=== PATIENT | female | born 1945 | race Caucasian/White ===

== ENCOUNTER → 2017-09-10 | Outpatient (CLI) | payer MEDICARE, OTHER | LOC: M.RAD 08:43 | DX: Z12.31 Encounter for screening mammogram for malignant neoplasm of breast (principal); M85.80 Other specified disorders of bone density and structure, unspecified site ==

== ENCOUNTER → 2018-07-25 | Outpatient (CLI) | payer MEDICARE, OTHER | LOC: M.RAD 07-18 09:00 | DX: M81.0 Age-related osteoporosis without current pathological fracture (principal); M85.89 Other specified disorders of bone density and structure, multiple sites; R06.02 Shortness of breath; Z72.0 Tobacco use; Z78.0 Asymptomatic menopausal state ==

== ENCOUNTER 2019-02-18 11:56 | Inpatient (IN) | payer MEDICARE, OTHER ==
[~2019-02-18] VITALS: Ht 162.6 cm; Wt 58.1 kg
--- NOTE | ~2019-02-18 | OP ---
[address] [address] OPERATIVE REPORT Name: BRANDI BARTLETT Room: [address] IN [facility].#: [id number] Admission: 02/18/19 Attend Phys: Montserrat Gonzales Discharge: 02/25/19 Date of : 47 Report #: [id number] THIS REPORT FOR: //name// CC: David Argueta DICTATED BY: Antonio Levy DO DATE OF SERVICE: 02/21/[address] Lizeth Villarreal PREOPERATIVE DIAGNOSIS: Right shoulder septic arthritis. POSTOPERATIVE DIAGNOSIS: Right shoulder septic arthritis. OPERATIVE SURGEON: Lizeth Villarreal DO SOLE ROUNDING MACHINE OPERATOR: Antonio Levy DO SURGERY PERFORMED: Right shoulder arthroscopic irrigation and debridement. ANESTHESIA TYPE: General. ESTIMATED BLOOD LOSS: 10 mL. SPECIMENS REMOVED: Tissue and fluid cultures sent to lab. COMPLICATIONS: None. ANTIBIOTICS: She is on scheduled vancomycin. TOURNIQUET: None. DISPOSITION: Stable to PACU. OPERATIVE INDICATIONS: The patient is a pleasant 73-year-old female who presented to the [facility] on Sunday02/18/2019 where she was found to have a swollen right shoulder. She underwent a shoulder aspiration in the clinic, which yielded 66,000 white blood cells with 99% PMNs. She subsequently underwent a right shoulder arthroscopic irrigation and debridement later on. The patient continued to have right shoulder pain and a repeat arthroscopic irrigation and debridement was deemed warranted today. The risks, benefits, complications and alternatives to surgery were thoroughly discussed with the patient and she accepted the risks [place] [address] OPERATIVE REPORT Name: BRANDI BARTLETT Room: [address] IN .R.#: [id number] Admission: 02/18/19 Attend Phys: Montserrat Gonzales Discharge: 02/25/19 Date of : 47 Report #: [id number] OPERATIVE FINDINGS: Upon entering the blunt trocar into the posterior portal into the joint, 10 mL of purulent serosanguineous fluid with chunks of purulent material were expressed from the right shoulder joint. Entering with the arthroscope there was no purulent material within the joint; however, there was a large amount of synovitis throughout the shoulder. There was near full thickness loss of cartilage on both the humeral head and superior portions of the glenoid. DESCRIPTION OF PROCEDURE: The patient was seen in the preoperative suite, the right shoulder was then marked. Everyone in the preoperative suite agreed with correct patient, site and side and procedure. Consent was obtained. The patient was then taken to the preoperative suite and transferred over to a well-padded surgical table in the supine position. She was given the benefits of general anesthesia and then placed in the beach chair position in the standard fashion. Sutures from her prior arthroscopic I and D were removed with Adson's and tenotomies. The patient was prepped in the standard fashion with ChloraPrep. The right shoulder was draped in a typical sterile fashion. A timeout was performed and everyone in the operative suite was in agreeance on correct patient, side, site, and procedure. An 11 blade was utilized to recreate the posterior portal from her prior surgery. The blunt trocar was inserted into the joint. Upon entering the joint, 10 mL of purulent serosanguineous fluid with chunked purulent material were expressed and collected into a specimen cup that was sit down to the lab for further analysis. The arthroscope was then inserted into the joint where a large amount of synovitis was encountered throughout the shoulder as well as loss of cartilage on both the humeral head and superior aspect of the glenoid. The anterior portal was then created with an 11 blade. The blunt trocar was used to enter the shoulder joint from the anterior portal. The 4-0 shaver was then inserted into the shoulder through the anterior portal. Synovium was debrided and then 9 liters of saline was used to irrigate the shoulder. Once the 9 liters of saline ran out, the shaver and the arthroscope were removed. Excess water was expressed from the shoulder joint through the anterior and posterior incisions. The incisions were then closed with 3-0 nylon in an interrupted fashion, then dressed with Xeroform, 4 x 4s, ABD and Medipore tape. The patient was placed back into her sling. She was awoken from general anesthesia and transported to PACU in stable condition. Dr. Villarreal was present for all pertinent and critical aspects of this case, postoperative care. The patient will resume her scheduled vancomycin, for which her next dose is at 1500 today. We will await the cultures and Gram stain results from this arthroscopic I and D as well as continue to follow the samples taken previously. She will continue using SCDs for DVT prophylaxis. We will monitor the patient's clinical symptoms as well as the Gram stain and culture [address] [address] OPERATIVE REPORT Name: BRANDI BARTLETT Room: [address] IN ..#: [id number] Admission: 02/18/19 Attend Phys: Montserrat Gonzales Discharge: 02/25/19 Date of : 47 Report #: [id number] results. ____ the patient will warrant a third arthroscopic irrigation and debridement. By: 0925 1035Achastity Villarreal DO /ab
[2019-02-18 12:26] LABS: HEMATOCRIT 36.3 % (37.0-47.0); HEMOGLOBIN 12.5 gm/dL (12.0-15.0); MCH 31.4 pg (26.0-34.0); MCHC 34.5 g/dL (28.0-37.0); MCV 90.8 fL (80.0-100.0); MPV 7.9 fl. (7.2-11.1); RBC 3.99 mil/uL (4.20-5.00); RDW-CV 12.5 % (10.5-14.5); WBC 7.5 thou/uL (4.0-11.0)
[2019-02-18 12:47] LABS: BF RBC 5840 /mm3; TOTAL CELL COUNT >66000 /mm3
[2019-02-18 12:49] LABS: TOTAL VOLUME 25 ml
[2019-02-18 12:50] LABS: CLARITY TURBID
[2019-02-18 13:46] LABS: BF LYMPHOCYTES 1 %; BF POLYS 99 %; BF TISSUE 3 /100 WBC
[2019-02-18 13:47] LABS: BF MONOCYTES 0 %; SOURCE SYNOVIAL
[2019-02-18 14:20] VITALS: BP 139/69
[2019-02-18 14:58] LABS: URINE BILIRUBIN NEGATIVE (Negative); URINE BLOOD TRACE (Negative); URINE CLARITY CLEAR; URINE COLOR YELLOW; URINE GLUCOSE-RANDOM NEGATIVE (Negative); URINE KETONES NEGATIVE (Negative); URINE LEUKOCYTES-REFLEX NEGATIVE (Negative); URINE NITRITE-REFLEX NEGATIVE (Negative); URINE PROTEIN NEGATIVE (Negative); URINE UROBILINOGEN 0.2 E.U./dl (0.2-1.0)
--- NOTE | 2019-02-18 15:21 | NUR ---
LEFT BASILIC VESSEL ACCESSED FOR DUAL LUMEN PICC. LINE PRE=TRIMMED TO 42 CM AND ADVANCED TO THE ZERO DAGOBERTO WITH NO RESISTANCE MET. UPPER ARM CIRCUMFERENCE ABOVE INSERTION SITE = 10 1/2". SHERLOCK MAGNET AND 3CG CONFIRMATION OF TIP TERMINATION AT PIERO CAVOATRIAL JUNCTION APPRECIATED. GUIDE WIRE REMOVED LINE FLUSHED AND INSERTION SITE DRESSED. REPORT GIVEN TO NERISSA DELGADO.
--- NOTE | 2019-02-18 15:31 | EKG ---
[place] [address] ELECTROCARDIOGRAM REPORT Name: BRANDI BARTLETT Room: [address] ADM IN M.R.#: [id number] Admission: 02/18/19 Attend Phys: Montserrat Gonzales Discharge: Date of : 47 Report #: [id number] THIS REPORT FOR: //name// [facility] Test Date: 2019-02-18 Test Time: 15:10:04 Pat Name: BRANDI BARTLETT Department: Room: [address] Gender: F Web Applications Developer: RT : 1945 Requested By: South Argueta Order Number: [id number] Mayra MD: Gavino Ramriez Measurements Intervals [place] Rate: 77 P: 71 AK: 139 QRS: 58 QRSD: 78 T: 52 QT: 371 QTc: 420 Interpretive Statements Sinus rhythm No previous ECG available for comparison Electronically Signed On 02-18-2019 15:31:15 SENIOR DIRECTOR FINANCE by Gavino Ramirez [email or web address] <ELECTRONICALLY SIGNED> By: Gavino Ramirez MD, [facility] 02/18/19 1531 1510 1510 Gavion Ramirez MD, FACC /EPI
[2019-02-18 15:35] LABS: ABSOLUTE LYMPHOCYTES 1.6 thou/uL (0.8-5.3); ABSOLUTE MONOCYTES 0.6 thou/uL (0.0-1.2); ABSOLUTE NEUTROPHILS 2.8 thou/uL (1.6-8.1); BASOPHILS 0.5 %; EOSINOPHILS 0.9 %; HEMATOCRIT 24.7 % (37.0-47.0); LYMPHOCYTES 31.7 %; MCH 31.4 pg (26.0-34.0); MCHC 34.7 g/dL (28.0-37.0); MCV 90.6 fL (80.0-100.0); MONOCYTES 12.4 %; MPV 7.8 fl. (7.2-11.1); NUCLEATED RBCS 0 /100WBC; POLYS 54.5 %; RBC 2.72 mil/uL (4.20-5.00); RDW-CV 12.4 % (10.5-14.5); WBC 5.1 thou/uL (4.0-11.0)
[2019-02-18 15:37] LABS: HEMOGLOBIN 8.5 gm/dL (12.0-15.0)
[2019-02-18 15:38] LABS: PLATELET COUNT* 184 thou/uL (150-400)
[2019-02-18 15:48] LABS: APTT 35.3 Seconds (25.0-31.3); CREATININE 0.4 mg/dL (0.6-1.3); INR 1.2; PROTIME 11.9 Seconds (9.20-11.50)
[2019-02-18 15:53] LABS: POTASSIUM 2.4 mmol/L (3.5-5.1)
[2019-02-18 16:24] LABS: ABSOLUTE EOSINOPHILS 0.1 thou/uL (0.0-0.7); ABSOLUTE LYMPHOCYTES 1.8 thou/uL (0.8-5.3); ABSOLUTE MONOCYTES 0.8 thou/uL (0.0-1.2); BASOPHILS 0.6 %; EOSINOPHILS 1.4 %; HEMATOCRIT 31.9 % (37.0-47.0); LYMPHOCYTES 26.4 %; MCH 31.5 pg (26.0-34.0); MCHC 34.9 g/dL (28.0-37.0); MCV 90.3 fL (80.0-100.0); MONOCYTES 12.1 %; MPV 7.6 fl. (7.2-11.1); NUCLEATED RBCS 0 /100WBC; PLATELET COUNT* 243 thou/uL (150-400); POLYS 59.5 %; RBC 3.54 mil/uL (4.20-5.00); RDW-CV 12.6 % (10.5-14.5); WBC 6.8 thou/uL (4.0-11.0)
[2019-02-18 16:27] LABS: HEMOGLOBIN 11.1 gm/dL (12.0-15.0)
[2019-02-18 16:30] LABS: CREATININE 0.6 mg/dL (0.6-1.3)
[2019-02-18 16:34] LABS: CALCIUM 7.6 mg/dL (8.5-10.1); POTASSIUM 3.6 mmol/L (3.5-5.1)
--- NOTE | 2019-02-18 18:05 | NUR ---
PT ARRIVED TO FLOOR ABOUT 1500. DIRECT ADMIT. PICC LINE PLACED. EKG COMPLETE. SEPSIS PROTOCAL STARTED. PACU CAME AND GOT PT ABOUT 1600 FOR SURGERY. WILL UPDATE WHEN PT RETURNED.
[2019-02-18 19:30] VITALS: BP 136/58
[2019-02-19] VITALS: BP 103/56
[2019-02-19 04:00] VITALS: BP 139/57
[2019-02-19 05:37] LABS: CREATININE 0.6 mg/dL (0.6-1.3); POTASSIUM 3.6 mmol/L (3.5-5.1)
[2019-02-19 05:38] LABS: ABSOLUTE BASOPHILS 0.1 thou/uL (0.0-0.2); ABSOLUTE EOSINOPHILS 0.1 thou/uL (0.0-0.7); ABSOLUTE MONOCYTES 0.7 thou/uL (0.0-1.2); ABSOLUTE NEUTROPHILS 3.1 thou/uL (1.6-8.1); BASOPHILS 1.5 %; EOSINOPHILS 1.6 %; HEMOGLOBIN 9.6 gm/dL (12.0-15.0); LYMPHOCYTES 33.5 %; MCH 31.2 pg (26.0-34.0); MCHC 34.1 g/dL (28.0-37.0); MCV 91.3 fL (80.0-100.0); MONOCYTES 11.1 %; MPV 8.2 fl. (7.2-11.1); NUCLEATED RBCS 0 /100WBC; PLATELET COUNT* 201 thou/uL (150-400); POLYS 52.3 %; RBC 3.07 mil/uL (4.20-5.00); RDW-CV 12.6 % (10.5-14.5); WBC 5.9 thou/uL (4.0-11.0)
[2019-02-19 07:40] VITALS: BP 108/56
--- NOTE | 2019-02-19 14:09 | NUR ---
VISITED WITH PT. CAME IN HALF WAY THROUGH CONVERSATION. PT.SAID SHE LIVES WITH HER . SHE IS NORMALLY INDEPENDENT. NO USE OF DME,HOME HEALTH OR SNF. DISCUSSED IV ANTIBIOTICS AT DISCHARGE IF CULTURES INDICATE NEED. SHE HAD A PICC LINE,PLACED YESTERDAY. SHE SAID IF ONCE/DAY SHE WOULD PROBABLY RATHER COME IN FOR INFUSION. OTHERWISE SHE FEELS SHE COULD BE TAUGHT TO INFUSE THEM. FAXED FACE SHEET,H&P,OP REPORT AND MED LIST TO [facility] [phone] TO CHECK BENEFITS. SHE WOULD LIKE TO USE [facility] FOR HOME HEALTH. FAXED REFERRAL TO [phone]
--- NOTE | 2019-02-19 15:30 | NUR ---
PER WALT Bazan,ADMITTING, PT.SHOULD BE COVERED AT 100% IF SHE CAME IN FOR IVAB INFUSION DAILY. PT. WOULD ONLY BE ABLE TO COME IN IF ANTIBIOTIC ORDERED WAS ONE TIME DAILY. SHE WOULD HAVE TO COME IN TO THE ER ON THE WEEKENDS FOR INFUSION. PER EMELIA/MISA MONROE. BENEFITS AT THIS TIME WHILE PT.ON 2 ANTIBIOTICS-CEFEPIME WOULD BE $211 AND VANC WOULD BE $304. WITH SUPPLIES TOTAL WOULD BE $656/WEEK. THIS WOULD BE LESS AFTER FINAL IVAB ORDERED. [facility]- -[phone]/[phone]. SHE WOULD USE [facility] FOR HH. [phone] OUTPT.[phone] PT.CAN COME IN FOR DAILY INF.ONLY
--- NOTE | 2019-02-19 15:31 | 2DMMODE ---
[place] [address] 2 D/M-MODE ECHOCARDIOGRAM Name: BRANDI BARTLETT Room: [address] IN [facility]#: [id number] Admission: 02/18/19 Attend Phys: South Argueta Discharge: Date of : 47 Date of Service: 02/19/19 1531 Report #: [id number] THIS REPORT FOR: //name// APPROVED REPORT Study performed: 02/19/2019 14:51:32 EXAM: Comprehensive 2D, Doppler, and color-flow Echocardiogram Patient Location: In-Patient Room #: [facility] Status: routine BSA: 1.62 HR: 64 bpm BP: 108/56 mmHg Rhythm: NSR Other Information Study Quality: Good Indications Sepsis 2D Dimensions IVSd: 9.48 (7-11mm) LVOT Diam: 18.92 (18-24mm) LVDd: 42.94 mm PWd: 9.52 (7-11mm) Ascending Ao: 32.43 (22-36mm) LVDs: 26.60 (25-40mm) Aortic Root: 27.75 mm Volumes Left Atrial Volume (Systole) LA ESV Index: 33.80 mL/m2 Aortic Valve AoV Peak Dany.: 1.39 m/s AO Peak Gr.: 7.70 mmHg LVOT Max P.59 mmHg AO Mean Gr.: 3.77 mmHg LVOT Mean P.68 mmHg LVOT Max V: 1.28 m/s AO V2 VTI: 25.02 cm LVOT Mean V: 0.73 m/s SHANNON (VTI): 3.08 cm2 LVOT V1 VTI: 27.38 cm Mitral Valve E/A Ratio: 1.21 MV Decel. Time: 203.05 ms MV E Max Dany.: 0.77 m/[place] [address] 2 D/M-MODE ECHOCARDIOGRAM Name: BRANDI BARTLETT Room: [address] IN .R.#: [id number] Admission: 02/18/19 Attend Phys: South Argueta Discharge: Date of : 47 Date of Service: 02/19/19 1531 Report #: [id number] MV PHT: 58.88 ms MVA (PHT): 3.74 cm2 TDI E/Lateral E': 6.42 E/Medial E': 7.00 Medial E' Dany.: 0.11 m/s Lateral E' Dany.: 0.12 m/s Pulmonary Valve PV Peak Dany.: 0.80 m/s PV Peak Gr.: 2.56 mmHg Tricuspid Valve RAP Estimate: 5.00 mmHg TR Peak Gr.: 19.00 mmHg RVSP: 24.00 mmHg PA Pressure: 24.00 mmHg Left Ventricle The left ventricle is normal size. There is normal LV segmental wall motion. There is normal left ventricular wall thickness. Left ventricular systolic function is normal. The left ventricular ejection fraction is within the normal range. LVEF is 55-60%. The left ventricular diastolic function is normal. Right Ventricle The right ventricle is normal size. The right ventricular systolic function is normal. Atria Left atrium is mildly dilated. Right atrium is dilated. Aortic Valve The aortic valve is normal in structure. No aortic regurgitation is present. There is no aortic valvular stenosis. Mitral Valve The mitral valve is normal in structure. Trace mitral regurgitation. No evidence of mitral valve stenosis. Tricuspid Valve The tricuspid valve is normal in structure. Mild tricuspid regurgitation. estimated pa pressure 28 mm Hg Pulmonic Valve The pulmonary valve is normal in structure. [place] [address] 2 D/M-MODE ECHOCARDIOGRAM Name: TRIBRANDI POLO Room: [address] IN [facility]#: [id number] Admission: 02/18/19 Attend Phys: South Argueta Discharge: Date of : 47 Date of Service: 02/19/19 1531 Report #: [id number] Great Vessels The aortic root is normal in size. IVC is normal in size and collapses >50% with inspiration. Pericardium There is no pericardial effusion. <Conclusion> LVEF is 55-60%. Left atrium is mildly dilated. <ELECTRONICALLY SIGNED> By: Gavino Ramirez MD, FACC 02/19/19 [phone] Gavino Ramirez MD, FACC /INF
[2019-02-19] MEDS ORDERED: REQUIP 1 MG TABL1 M1 PO (15:44)
[2019-02-19] MEDS ORDERED: TRAZODONE HCL100 MG PO (15:49)
[2019-02-19 16:06] LABS: BODY FLUID PROTEIN 5.1 g/dL (())
[2019-02-19 16:21] VITALS: BP 117/47
--- NOTE | 2019-02-19 18:00 | NUR ---
PATIENT RESTING IN BED. PATIENT IS UP AD MERARI IN ROOM. PATIENT HAS SLING TO RIGHT ARM. ATIENT HAS HAD COMPLAINTS OF PAIN, TREATED ADEQUATELY WITH HYDROCODONE. PATIENT HAS GOOD APPETITE. PATIENT DENIES ANY NEEDS AT THIS TIME. CALL LIGHT WITHIN REACH.
[2019-02-19 20:30] VITALS: BP 147/67
[2019-02-19 21:46] LABS: SOURCE SYNOVIAL
[2019-02-20 02:06] LABS: GLYCOHEMOGLOBIN (HGB A1C) 5.2 % (4.8-5.6)
[2019-02-20 05:35] LABS: ABSOLUTE BASOPHILS 0.1 thou/uL (0.0-0.2); ABSOLUTE EOSINOPHILS 0.2 thou/uL (0.0-0.7); ABSOLUTE LYMPHOCYTES 1.9 thou/uL (0.8-5.3); ABSOLUTE MONOCYTES 0.6 thou/uL (0.0-1.2); EOSINOPHILS 3.1 %; HEMATOCRIT 29.7 % (37.0-47.0); HEMOGLOBIN 10.2 gm/dL (12.0-15.0); LYMPHOCYTES 33.1 %; MCH 31.1 pg (26.0-34.0); MCHC 34.3 g/dL (28.0-37.0); MCV 90.7 fL (80.0-100.0); MONOCYTES 10.9 %; MPV 8.8 fl. (7.2-11.1); NUCLEATED RBCS 0 /100WBC; PLATELET COUNT* 213 thou/uL (150-400); POLYS 51.9 %; RBC 3.27 mil/uL (4.20-5.00); RDW-CV 12.5 % (10.5-14.5); WBC 5.9 thou/uL (4.0-11.0)
[2019-02-20 05:42] LABS: CALCIUM 7.5 mg/dL (8.5-10.1); CREATININE 0.7 mg/dL (0.6-1.3); POTASSIUM 3.8 mmol/L (3.5-5.1)
--- NOTE | 2019-02-20 06:22 | NUR ---
PATIENT SLEPT MOST OF THE NIGHT. IV VANC WAS GIVEN ORDERED. DRESSING TO R SHOULDER REMAINS INTACT WITH SLING IN PLACE. PATIENT WAS GIVEN NAUSEA MEDICINE TWICE AND A LAXITIVE BUT STILL NO BOWEL MOVEMENT. WILL CONTINUE TO MONITOR.
--- NOTE | 2019-02-20 06:26 | CON ---
[address] [address] CONSULTATION Name: BRANDI BARTLETT Room: [address] IN M.R.#: [id number] Admission: 02/18/19 Attend Phys: Montserrat Gonzales Discharge: Date of : 47 Report #: [id number] THIS REPORT FOR: //name// CC: David Argueta DATE OF SERVICE: 02/19/2019 INFECTIOUS DISEASE CONSULTATION ATTENDING PHYSICIAN: South Argueta DO REASON FOR EVALUATION: Right shoulder septic arthritis. HISTORY OF PRESENT ILLNESS: Chart reviewed, patient examined. This is a 73-year-old with little medical history who apparently had developed a frozen shoulder. She at one point received corticosteroid injections, although it has been several months up to a year ago. She developed increasing pain associated with the site without antecedent injury. This progressed over 2-3 days, making it difficult to move the shoulder whatsoever, increasing pain, had some low-grade temperature elevations as well. She was evaluated as an outpatient and underwent aspiration, which showed marked numbers of inflammatory cells, greater than 66,000, 99% polys with synovial aspiration. She was subsequently admitted and underwent operative arthroscopic debridement. Cultures pending. She is empirically started on therapy with vancomycin, single dose of cefepime. At this point, she does state she feels better. Denies any significant pulmonary or gastrointestinal related complaints. ALLERGIES: None known. CURRENT MEDICATIONS: Include famotidine, vancomycin, p.r.n. analgesics and antiemetics. PAST MEDICAL HISTORY: Otherwise, unremarkable. Previous cataract surgeries, corneal transplant, bunionectomy. SOCIAL HISTORY: Does smoke cigarettes, roughly quarter pack for the last 50 years. No illicit drug use. No ethanol. FAMILY HISTORY: Noncontributory. REVIEW OF SYSTEMS: Otherwise, unremarkable 10-point review of systems. PHYSICAL EXAMINATION: GENERAL: She is alert, cooperative, appropriate, [place] [address] CONSULTATION Name: BRANDI BARTLETT Room: [address]#: [id number] Admission: 02/18/19 Attend Phys: Montserrat Gonzales Discharge: Date of : 47 Report #: [id number] Noted her right upper extremity is in a sling. She appears somewhat undernourished. VITAL SIGNS: Temperature 98.5, pulse 61, respirations 16, blood pressure 108/56. SKIN: Warm, dry, no rashes. HEENT: Normocephalic. Extraocular muscles intact. NECK: Supple. LUNGS: Diminished breath sounds, generally clear. HEART: Regular. Borderline bradycardic. I do not appreciate any murmur. ABDOMEN: Soft, nontender, nondistended. EXTREMITIES: No cyanosis. GENITOURINARY/RECTAL: Deferred. LABORATORY DATA: Initial CRP 172.1. CBC: White count of 7.5, H and H 12.5 and 36.3, platelets of 270, sed rate of 75. Synovial fluid culture in progress. Gram stain, no organisms seen, many PMNs. Fluid analysis greater than 66,000 white cells, 5840 red cells, 99% polys, 1% lymph. Urinalysis otherwise unremarkable. Chest x-ray, no acute process. Blood cultures sterile thus far. Echo, EF of 55%-60%, otherwise unremarkable. Crystal analysis, no crystals seen. ASSESSMENT: Right shoulder septic arthritis. I presumed this as a bacteremic seeding based on the history, certainly has ongoing issues for her shoulder given the marked numbers. We will await those culture results. Continue empiric therapy, presume Staph or strep etiology at this point, consider anaerobic as well. Follow up postop. Also note that we may need two additional debridements. We will monitor expectantly. Add incentive spirometry. I would be concerned about possible additional complications. <ELECTRONICALLY SIGNED> By: Arturo Patel MD 02/20/19 0626 1543 [id number] Patel MD /nt
[2019-02-20 07:55] VITALS: BP 144/69
[2019-02-20 16:30] VITALS: BP 156/76
--- NOTE | 2019-02-20 19:00 | NUR ---
PATIENT PLEASANT AND COOEPRATIVE THRU SHIFT. SEE MAR FOR PAIN CONTROL. SLING TO RUE IN PLACE. BULK DRSG TO RT SHOULDER IN PLACE, REINFORCED THIS AM. PATIENT STATES STARTING TO HAVE RESULTS FROM LAXATIVE THIS AM. PICC LINE NOTED WNL. UP INDEP IN RM THIS SHIFT. CURRENTLY RESTING W/ PRESENT IN RM. WATCHING TV. CALM. HRLY ROUNDS DONE. CALL LIGHT IN REACH. ~TJRN
[2019-02-20 19:35] VITALS: BP 172/83
[2019-02-21 00:27] VITALS: BP 172/83
--- NOTE | 2019-02-21 04:45 | NUR ---
PATIENT HAS REMAINED ALERT AND ORIENTED X 4 THROUGHOUT THE SHIFT AND RESTING QUIETLY ON HOURLY ROUNDS. MINAMAL DISCOMFORT RIGHT SHOULDER. ADEQUATE PAIN CONTROL WITH SCHEDULED TORADOL. DRESSING RIGHT SHOULDER CLEAN AND DRY WITH SLING PRESENT. UP INDEPENDENTLY IN THE ROOM. ANTIBIOTICS PER ORDER. NPO AT MIDNIGHT FOR EARLY AM IRRIGATION AND DEBRIDEMENT OF RIGHT SHOULDER. VITAL SIGNS WITH HYPERTENSION AND TEMP 100.0 ORALLY F. INCENTIVE SPIROMETRY ENCOURAGED. CONTINUE TO MONITOR.
[2019-02-21 04:52] VITALS: BP 150/81
[2019-02-21 09:30] VITALS: BP 142/74
[2019-02-21 09:41] LABS: MCH 31.2 pg (26.0-34.0); MCHC 34.6 g/dL (28.0-37.0); MCV 90.2 fL (80.0-100.0); MPV 8.2 fl. (7.2-11.1); RBC 3.22 mil/uL (4.20-5.00); RDW-CV 12.7 % (10.5-14.5); WBC 5.6 thou/uL (4.0-11.0)
[2019-02-21 10:00] LABS: CALCIUM 7.3 mg/dL (8.5-10.1); CREATININE 0.7 mg/dL (0.6-1.3); POTASSIUM 3.5 mmol/L (3.5-5.1)
[2019-02-21 19:30] VITALS: BP 121/64
--- NOTE | 2019-02-21 19:43 | NUR ---
ASSUMED CARE OF PATIENT AT APPROX 0930, PATIENT OFF UNIT AT SHIFT CHANGE. ALERT AND ORIENTED X4. ASSESSMENT CPMPLETED AND CHARTED. VSS ON ROOM AIR. MINIMAL COMPLAINTS OF PAIN THIS SHIFT, MANAGED WITH ORAL NORCO. PATIENT UP AD MERARI AND STEADY. RIGHT UPPER EXTREMITY IN SLING. ANTIBIOTICS INFUSED ORDERED. NO OTHER COMPLAINTS. HOURLY ROUNDS COMPLETED. CALL LIGHT WIN REACH. WILL CONTINUE WITH PLAN OF CARE.
[2019-02-22] VITALS: BP 114/61
[2019-02-22 04:00] VITALS: BP 128/61
[2019-02-22 07:44] VITALS: BP 128/68
--- NOTE | 2019-02-22 09:10 | NUR ---
ASSUMED CARE OF PT AROUND 0730 THIS AM. REFER TO ASSESSMENT. PT REPORTS PAIN CONTROLLED THIS AM. DRESSING TO RT SHOULDER C/D/I. NO OTHER CONCERNS THIS AM. REFER TO ASSESSMENT. NO OTHER CONCERNS AT THIS TIME. CLWR. WCTM.
[2019-02-22 12:00] VITALS: BP 142/82
--- NOTE | 2019-02-22 15:57 | NUR ---
PT PROGRESSING TOWARDS GOALS THIS SHIFT. ORDER OBTAINED FOR HYDROCORTISONE CREAM FOR RASH TO BACK. PLAN TO ATTEMPT CATH NEELIMA TO DOUBLE LUMEN PICC SINCE UNABLE TO DRAW BLOOD FROM EITHER PORTS. DISCUSSED NEW ORDER FOR LISINOPRIL WITH PT AND PT AGREE'S TO START TAKING. NO OTHER CONCERNS AT THIS TIME. CLWR. WCTM.
[2019-02-22 16:00] VITALS: BP 138/74
[2019-02-22 21:00] VITALS: BP 136/69
--- NOTE | 2019-02-23 06:48 | NUR ---
SLOW PROGRESSION TOWARDS GOALS, RESTING QUIELTY WITH EYES CLOSED OFF AND ON DURING NOC, LOW GRADE TEMP 100.4 ORAL, X1 EMESIS DURING NOC, ZOFRAN 4MG IVP GIVEN WITH EFFECTIVE RESULTS NO FURTHER N/V REST OF NOC, DRESSING RT SHOULDER REMAINS C/D/I, PURITIS TO GENERALIZED RASH, HYDROCORTISONE APPLIED X2, PT REPORTS HYDROCORDISONE HELPFUL FOR ITCHING, USING CALL LIGHT FOR NEEDS, CALL LIGHT REMAINS IN REACH, NO FURTHER CHANGE IN ASSESSMENT.
[2019-02-23 07:30] VITALS: BP 151/71
[2019-02-23 14:04] LABS: ABSOLUTE BASOPHILS 0.1 thou/uL (0.0-0.2); ABSOLUTE EOSINOPHILS 0.1 thou/uL (0.0-0.7); ABSOLUTE LYMPHOCYTES 1.4 thou/uL (0.8-5.3); ABSOLUTE MONOCYTES 0.5 thou/uL (0.0-1.2); ABSOLUTE NEUTROPHILS 4.8 thou/uL (1.6-8.1); EOSINOPHILS 2.1 %; LYMPHOCYTES 20.5 %; MCH 30.9 pg (26.0-34.0); MCHC 34.6 g/dL (28.0-37.0); MCV 89.4 fL (80.0-100.0); MONOCYTES 7.4 %; MPV 7.7 fl. (7.2-11.1); NUCLEATED RBCS 0 /100WBC; PLATELET COUNT* 289 thou/uL (150-400); RBC 3.24 mil/uL (4.20-5.00); RDW-CV 12.6 % (10.5-14.5)
[2019-02-23 14:09] LABS: CALCIUM 7.6 mg/dL (8.5-10.1); POTASSIUM 3.3 mmol/L (3.5-5.1)
[2019-02-23 16:09] VITALS: BP 144/89
--- NOTE | 2019-02-23 18:41 | NUR ---
PT VSS THIS SHIFT. PT TOLERATING RA, DIET, AND BEING UP AD MERARI THIS SHIFT. PAIN WELL MANAGED THIS SHIFT. DRSG TO RUE CDI THIS SHIFT. PLAN FOR PT TO GO FOR PROCEDURE TO CLEAN OUT SHOULDER TOMORROW AND WILL BE NPO AT MIDNIGHT ON 02/24/19 (ORDER PLACED). NO OTHER CONCERNS NOTED. WILL CONTINUE TO MONITOR AND ASSESS
[2019-02-23 22:06] VITALS: BP 146/71
[2019-02-24 03:32] LABS: HEMATOCRIT 27.2 % (37.0-47.0); HEMOGLOBIN 9.3 gm/dL (12.0-15.0); MCH 30.5 pg (26.0-34.0); MCV 89.5 fL (80.0-100.0); MPV 7.9 fl. (7.2-11.1); RBC 3.04 mil/uL (4.20-5.00); RDW-CV 12.9 % (10.5-14.5); WBC 6.6 thou/uL (4.0-11.0)
[2019-02-24 03:40] LABS: CALCIUM 7.6 mg/dL (8.5-10.1); CREATININE 0.8 mg/dL (0.6-1.3)
--- NOTE | 2019-02-24 04:35 | NUR ---
ASSUMED CARE OF PT 02/23/19 AT APPROX 1930, PT A&OX4 THROUGHOUT SHIFT, VSS, PT ON ROOM AIR, DRESSING TO SHOULDER C/D/I, PT NPO SINCE MN FOR I&D ON 02/24, PAIN MED REQUESTED AND GIVEN X1, POTASSIUM GIVEN PER PROTOCOL - 12/2 AM POTASSIUM 4.0, ASSESSMENTS AND HOURLY ROUNDINGS COMPLETED. WILL CONTINUE TO MONITOR.
[2019-02-24 05:02] VITALS: BP 146/71
[2019-02-24 07:20] VITALS: BP 140/82
--- NOTE | 2019-02-24 15:40 | NUR ---
Possible for dc planning for pt to dc home with tomorrow, pt transitioning to po abx. If need for HH services, [facility] was previously arranged. SW to continue to follow to assist with safe dc planning.
[2019-02-24 16:54] VITALS: BP 159/86
--- NOTE | 2019-02-24 19:31 | NUR ---
RECEIVED REPORT FROM SUSAN DELGADO. ASSUMED CARE OF PT AROUND 1030. PT A&O X4. VSS. THIS RN AGREES WITH THE ASSESSMENT AND CHARTING OF SUSAN DELGADO. PT TOLERATING DIET. MEDS PER EMAR. FAMILY/FRIENDS IN AND OUT OF ROOM ALL DAY. PT TO GO HOME TOMORROW. ALL NEEDS MET AT THIS TIME. TYLENOL GIVEN THIS MORNING FOR RIGHT SHOULDER PAIN, EFFECTIVE. DRESSING TO RIGHT SHOULDER CDI. PT CURRENTLY RESTING IN BED. CALL LIGHT IS WITHIN REACH. HOURLY ROUNDING PERFORMED.
[2019-02-24 20:00] VITALS: BP 145/81
--- NOTE | 2019-02-25 04:49 | NUR ---
ASSUMED PATIENT CARE AT 1900. PATIENT ALERT AND ORIENTED TIMES FOUR. PICC IN PLACE. NO COMPLAINTS OF PAIN OR DISCOMFORT NOTED. IS HOPEFUL TO GO HOME THIS AM. DRUG ROOM OPERATOR AND HOURLY ROUNDING COMPLETED DOCUMENTED.
[2019-02-25 08:15] VITALS: BP 166/90
--- NOTE | 2019-02-25 10:13 | NUR ---
BRADLEY NOTIFIED EMELIA/MISA MONROE THAT PT. WILL NOT BE NEEDING IV ANTIBIOTICS AT DISCHARGE. POSSIBLY HOME TODAY ON ORAL AND POSSIBLY HOME HEALTH.
[2019-02-25] MEDS ORDERED: BENAZEPRIL HCL20 MG PO (17:02)
[2019-02-25 17:13] VITALS: BP 166/90
[2019-02-25 17:19] VITALS: BP 166/90
[2019-02-25] MEDS ORDERED: NORCO 5-325 TA1 EAC1 PO (17:20)
[2019-02-25] MEDS ORDERED: MINOCYCLINE HC100 M2 PO (17:21)
[2019-02-25] MEDS ORDERED: RIFADIN300 MG PO (17:22)
--- NOTE | 2019-02-25 17:22 | NUR ---
SPOKE WITH PT.ABOUT DISCHARGE. SHE SAID ORTHOPEDIC NEVER SAW HER TODAY. SHE IS NOT SURE IF SHE IS SUPPOSED TO DO THERAPY OR NOT ON SHOULDER. CALL PLACED TO [facility]. THEY WILL PAGE A RESIDENT. RYANNRN SAID ORTHO SAID SHE COULD HAVE THERAPY IF SHE WANTED. OUTPT.VS HH. RYANN ASKED PT.AND SHE CHOSE OUTPT.AT [facility] IN [place]. PROVIDED NUMBER FOR [facility]. PUT INFORMATION ON DISCHARGE INSTRUCTIONS. CM WILL CALL [facility] IN AM TO LET THEM KNOW PT.DECLINED HH.
--- NOTE | 2019-02-25 19:55 | NUR ---
I ASSUMED CARE OF THE PATIENT AT 0700. SHE IS ALERT AND ORIENTED X4 AND IS UP AD MERARI. PATIENT IS READY TO DISCHARGE. BED IS IN THE LOW LOCKED POSITION AND CALL LIGHT IS IN REACH. PAIN IS MANAGED WITH PRN MEDS. HOURLY ROUNDING IS COMPLETED AND PATIENT NEEDS ARE MET. SHE IS DISCHARGED TO HOME WITH AND [facility]CR[facility]. SHE HAS DIRECTIONS FOR FOLLOW UP INSTRUCTIONS AND COMMUNICATES UNDERSTANDING. PICC LINE IS D/C'D AND HOMEOSTASIS IS ACHEIVED.
--- NOTE | 2019-03-10 18:53 | OP ---
[address] [address] OPERATIVE REPORT Name: BRANDI BARTLETT Room: [address] IN ..#: [id number] Admission: 02/18/19 Attend Phys: Montserrat Gonzales Discharge: 02/25/19 Date of : 47 Report #: [id number] THIS REPORT FOR: //name// CC: David Argueta DATE OF SERVICE: 02/18/2019 PREOPERATIVE DIAGNOSIS: Right shoulder septic arthritis. POSTOPERATIVE DIAGNOSIS: Right shoulder septic arthritis. PROCEDURE: Right shoulder arthroscopy with irrigation and debridement for septic arthritis. SURGEON: Buddy Mcmahan DO CODE ENFORCEMENT OFFICER: DO Maximo ASSISTANTS: 1. Tanner Serna DO 2. Gary Doe DO ANESTHESIA: General. ANTIBIOTICS: Ancef withheld until cultures taken. FLUIDS: 800 mL lactated Ringer's. ESTIMATED BLOOD LOSS: 10 mL. COMPLICATIONS: None. SPECIMENS: None. DRAINS: None. CONDITION: The patient is stable to PACU. INDICATIONS FOR PROCEDURE: The patient presents to [facility] for operative treatment of her right shoulder septic arthritis. She had originally seen my partner, Dr. Peralta in clinic that day, she had fever, effusion and pain about the shoulder. They aspirated the fluid and results came back consistent with infection when combining that with also our physical exam results. He contacted me directly and asked if I took over her care and I am [facility] [address] [place] [address] OPERATIVE REPORT Name: BRANDI BARTLETT Room: [address] IN M.R.#: [id number] Admission: 02/18/19 Attend Phys: Montserrat Gonzales Discharge: 02/25/19 Date of : 47 Report #: [id number] willing to wash her out due to his unavailability and I agreed. We went over with her the diagnosis, plan of surgery and risks and complications all in detail. She ultimately gave consent to proceed. DESCRIPTION OF PROCEDURE: I marked the right upper extremity in the presence of the operative team members. Everyone in attendance agreed. She was taken back to the operative suite where a briefing was performed indicating correct patient, procedure, site. Antibiotics will be held until culture and then we would not be implanting anything. All team members agreed. She was transferred over to the operative table in supine position, well-padded and secured. General anesthetic administered. She was placed into the beachchair position, appropriately positioned and padded and secured. The right upper extremity was sterilely prepped and draped in standard fashion. Timeout was performed indicating correct patient, procedure, site, antibiotics being held until cultures are obtained and that we would not be implanting anything. All team members agreed. Marked out shoulder for incisions. A posterior incision made with 11-blade scalpel. Trocar and camera introduced into the glenohumeral joint, immediately identified fluid. This was sent for culture. Antibiotics were given. Insufflated the shoulder with normal saline at 40 mmHg. Identified an anterior portal with a spinal needle, then scalpel and blunt probe introduced. We began the diagnostic portion of the exam, significant degenerative tearing of the labrum, what appeared to be a quite significant rotator cuff tear and chronic in nature as it would not pull back all the way to the articular margin as we would discover after making a lateral portal, generalized arthritis, grade 3 chondromalacia of the shoulder, the humerus did not appear to be significantly high riding. Used a grasper to create the graft deep tissue and sent this for culture as well. Made a lateral-based portal after spinal needle scalpel and localization, we could see into the subacromial space even from the joint. Shaver was introduced. We performed a gentle debridement, thoroughly irrigated with over 9 liters of normal saline, including a bursectomy. After thoroughly irrigating, we then removed fluid and instruments, closed portal sites with 3-0 nylon simple interrupted loosely. Debriefing performed where we confirmed procedure, blood loss and all counts were correct and final. All team members agreed. Sterile dressings applied and she was extubated and transferred off the operating table and taken to PACU stable. POSTOPERATIVE COURSE AND EVALUATION: I spoke with her and addressed questions that he had to his stated satisfaction. She was resting in PACU with stable vital signs, pain controlled, neurovascularly intact. She will be admitted, admission doctor I have already spoke to and he has already met the patient. Likely, we will involve Infectious Disease. She will also likely require secondary wash out out, I have already discussed this with my partner, who is on-call. Encouraged medical nursing staff, my partner, residents, the patient and her family to call anytime with questions or issues. DVT [address] [id number] OPERATIVE REPORT Name: BRANDI BARTLETT Room: M.115-P DIS IN M.R.#: [id number] Admission: 02/18/19 Attend Phys: Montserrat Gonzales Discharge: 02/25/19 Date of : 47 Report #: [id number] prophylaxis should also be pharmacological and mechanical until instructed otherwise. <ELECTRONICALLY SIGNED> By: Buddy Mcmahan DO 03/10/19 [id number] Mcmahan DO /nt
== END 2019-02-25 18:29 | disposition home or self-care (01) | DRG 511 ==
LOC: M.LAB 11:56 → M.ORTHSURG 13:00
PROVIDERS: Anesthesiology; Orthopaedic Surgery; ADMIT Internal Medicine
PROC: 0R9J4ZZ Drainage of Right Shoulder Joint, Percutaneous Endoscopic Approach (ICD-10-PCS; principal; 2019-02-18)
PROC: B548ZZA Ultrasonography of Superior Vena Cava, Guidance (ICD-10-PCS; principal; 2019-02-18)
PROC: 0RBJ4ZZ Excision of Right Shoulder Joint, Percutaneous Endoscopic Approach (ICD-10-PCS; principal; 2019-02-18)
PROC: 02HV33Z Insertion of Infusion Device into Superior Vena Cava, Percutaneous Approach (ICD-10-PCS; principal; 2019-02-18)
PROC: 0R9J4ZZ Drainage of Right Shoulder Joint, Percutaneous Endoscopic Approach (ICD-10-PCS; 2019-02-21)
PROC: 0RBJ4ZZ Excision of Right Shoulder Joint, Percutaneous Endoscopic Approach (ICD-10-PCS; 2019-02-21)
DX: M00.811 Arthritis due to other bacteria, right shoulder (principal); E44.1 Mild protein-calorie malnutrition; F17.210 Nicotine dependence, cigarettes, uncomplicated; G25.81 Restless legs syndrome; I10 Essential (primary) hypertension; R21 Rash and other nonspecific skin eruption; Z79.899 Other long term (current) drug therapy; Z94.7 Corneal transplant status; Z68.22 Body mass index [BMI] 22.0-22.9, adult

== ENCOUNTER → 2019-03-05 | Outpatient (CLI) | payer MEDICARE, OTHER ==
[~2019-03-05] MED LIST: BENAZEPRIL HCL20 MG PO; MINOCYCLINE HC100 M2 PO; NORCO 5-325 TA1 EAC1 PO; REQUIP 1 MG TABL1 M1 PO; RIFADIN300 MG PO; TRAZODONE HCL100 MG PO
[2019-03-05 16:48] LABS: HEMATOCRIT 39.5 % (37.0-47.0); HEMOGLOBIN 13.4 gm/dL (12.0-15.0); MCH 30.4 pg (26.0-34.0); MCHC 33.9 g/dL (28.0-37.0); MCV 89.6 fL (80.0-100.0); MPV 8.1 fl. (7.2-11.1); RBC 4.41 mil/uL (4.20-5.00); RDW-CV 13.5 % (10.5-14.5)
== END ==
LOC: M.LAB 16:25
PROVIDERS: Orthopaedic Surgery
DX: M00.819 Arthritis due to other bacteria, unspecified shoulder (principal)

== ENCOUNTER → 2019-11-10 | Outpatient (CLI) | payer MEDICARE, OTHER | LOC: M.RAD 12:53 | PROVIDERS: ATTEND Family Medicine | DX: Z12.31 Encounter for screening mammogram for malignant neoplasm of breast (principal) ==

== ENCOUNTER → 2021-05-23 | Outpatient (CLI) | payer MEDICARE, OTHER | LOC: M.RAD 13:00 | PROVIDERS: ATTEND Family Medicine | DX: Z12.31 Encounter for screening mammogram for malignant neoplasm of breast (principal); M81.0 Age-related osteoporosis without current pathological fracture ==